=== PATIENT | male | born 1970 | race Hispanic/Latino ===

== ENCOUNTER 2022-09-19 07:00 | Outpatient (RCR) | payer BC ==
[~2022-09-19 07:00] MED LIST: LOSARTAN POTASS50 MG PO; NEXIUM40 MG PO; Z LAMISIL; Z.0.BENAZEPRIL HCL40
== END 2022-10-03 ==
LOC: PT 07:00
PROVIDERS: ATTEND Neurological Surgery
DX: M48.062 Spinal stenosis, lumbar region with neurogenic claudication (principal)